=== PATIENT | female | born 1950 | race Caucasian/White ===

== ENCOUNTER 2018-06-27 07:12 | Day surgery (SDC) | payer MEDICARE, OTHER ==
[2018-06-27] MEDS ORDERED: IOHEXOL 50 ML IV ONE (07:52)
[2018-06-27] MEDS ORDERED: methylPREDNISolone ACETATE 80 MG/ML VIAL ONE (07:53)
[2018-06-27] MEDS ORDERED: LIDOCAINE HCL/PF 1% 30 ML SDV ONE (07:53)
[2018-06-27] MEDS ORDERED: BUPIVACAINE 0.25% 75 MG/30 ML VIAL ONE (07:53)
[2018-06-27] MEDS ORDERED: FENTANYL PF 100MCG/2ML AMPUL ONE (07:59)
[2018-06-27] MEDS ORDERED: MIDAZOLAM HCL 2 MG/2ML VIAL ONE (08:00)
[2018-06-27 08:03] LABS: BASOPHILS # (AUTO) 0.1 /CMM (0.0-0.2); BASOPHILS % (AUTO) 0.5 % (0.0-2.0); EOSINOPHILS % (AUTO) 2.8 % (0.0-6.0); HEMATOCRIT 38 % (33-45); LYMPHOCYTES # (AUTO) 1.4 /CMM (0.8-4.8); LYMPHOCYTES % (AUTO) 13.9 % (20.0-44.0); MEAN CORPUSCULAR HGB CONC 34 g/dl (31.0-36.0); MEAN CORPUSCULAR VOLUME 85 fL (82-100); MONOCYTES # (AUTO) 0.9 /CMM (0.1-1.30); MONOCYTES % (AUTO) 9.3 % (2.0-12.0); NEUTROPHILS # (AUTO) 7.4 /CMM (1.8-8.9); NEUTROPHILS % (AUTO) 73.5 % (43.0-81.0); PLATELET COUNT (AUTO) 196 /CMM (150-450); RED BLOOD CELL COUNT(AUTO) 4.43 MIL/uL (4.0-5.2); WHITE BLOOD COUNT (AUTO) 10.1 K/uL (4.3-11.0)
[2018-06-27 08:15] LABS: CALCIUM, SERUM 9.2 mg/dL (8.5-10.1); CREATININE 0.6 mg/dL (0.6-1.3)
== END 2018-06-27 09:30 | disposition home or self-care (01) ==
LOC: DS 07:12
PROVIDERS: ATTEND Anesthesiology
DX: M47.26 Other spondylosis with radiculopathy, lumbar region (principal); M54.5 Low back pain; J45.909 Unspecified asthma, uncomplicated; F32.9 Major depressive disorder, single episode, unspecified; G89.29 Other chronic pain; Z79.899 Other long term (current) drug therapy; M54.9 Dorsalgia, unspecified
CPT/HCPCS: 36415; 62323; 72020; 80048; 85025; 85610; 85730; J1040; J2250; J3490 ×3; Q9967; J3010